=== PATIENT | female | born 1970 | race Caucasian/White ===

== ENCOUNTER 2020-01-05 19:27 | Emergency (ER) | payer MEDICAID, SELFPAY ==
[2020-01-05 21:04] LABS: BASOPHIL % 0.7 % (0-2); PLATELET COUNT 289 x10^3mcL (130-400); RED CELL DISTRIBUTION WIDTH 13.2 % (11.5-14.5)
[2020-01-05 21:27] LABS: CALCIUM 8.6 mg/dL (8.5-10.1); CHLORIDE SERUM 98 mmol/L (98-107); CREATININE SERUM 0.8 mg/dL (0.6-1.0); GFR1 > 60 mL/min; GLUCOSE SERUM 411 mg/dL (74-106); SODIUM SERUM 132 mmol/L (136-145)
[2020-01-05 21:31] LABS: ALKALINE PHOSPHATASE 120 U/L (46-116); ALT/SGPT 53 U/L (14-59); AST/SGOT 46 U/L (15-37); BILIRUBIN TOTAL 0.2 mg/dL (0.20-1.00); TOTAL PROTEIN, SERUM 7.3 g/dL (6.4-8.2)
[2020-01-05 23:43] VITALS: BP 138/95
== END 2020-01-05 23:43 | disposition home or self-care (01) ==
LOC: ED 19:27
PROVIDERS: Specialist
DX: E11.65 Type 2 diabetes mellitus with hyperglycemia (principal); R05 Cough; I10 Essential (primary) hypertension
CPT/HCPCS: 36600; 82962; J1815; J7030; Q0092